=== PATIENT | male | born 1965 | race Caucasian/White ===

== ENCOUNTER 2021-05-04 15:09 | Emergency (ER) | payer OTHER, SELFPAY ==
--- NOTE | ~2021-05-04 | CT_ITS ---
EXAMINATION: CT ABDOMEN AND PELVIS WITH CONTRAST CLINICAL INFORMATION: Abdominal pain. Recent inguinal hernia repair (05/03/2021). COMPARISON: No similar priors. TECHNIQUE: Multidetector volumetric images were obtained from the superior aspect of the liver through the pubic symphysis following administration 85 mL of Omnipaque 350 intravenous contrast. Sagittal and coronal reformatted images were obtained on the technologist's workstation. Oral contrast: No This CT examination was performed using dose optimization techniques as appropriate, variously including the following: *Automated exposure control *Adjustment of mA and/or kV according to patient size (this includes techniques or standardized protocols for targeted exams where dose is matched to indication/reason for exam; i.e. extremities or head) *Use of iterative reconstruction technique DLP: 268 mGy-cm FINDINGS: LUNG BASES: The visualized lung bases are unremarkable. LIVER, GALLBLADDER, AND BILIARY TREE: The liver is normal in size, shape and attenuation. There is a 1.8 cm cyst in the left hepatic lobe on image 15 of series 3. There are several additional smaller hypodensities throughout the liver which are too small to characterize although statistically are also likely to represent simple cysts. There is no biliary ductal dilatation. The gallbladder is within normal limits. PANCREAS: No focal abnormalities. The main pancreatic duct is nondilated. SPLEEN: Unremarkable. ADRENAL GLANDS: There is a 1.3 cm right adrenal nodule (image 19 of series 3) and a 8 mm left adrenal nodule (image 20 of series 3) of uncertain etiology. KIDNEYS AND URETERS: The kidneys are normal in size, shape, and attenuation. There is an exophytic simple cyst off the mid pole of the left kidney. There are other too small to characterize hypodensities in the left kidney which are statistically likely to represent simple cysts. No hydronephrosis, hydroureter, or calculi seen. No perinephric stranding. BLADDER: The urinary bladder is partially underdistended with a St catheter and balloon in place. The tip of the St catheter terminates in close proximity to the left upper wall on image 77 of series 3. Air in the center of the urinary bladder is likely related with the presence of the balloon of the St catheter. There is mild wall thickening and surrounding free fluid and fat stranding which are indeterminate in the postoperative setting. GASTROINTESTINAL TRACT: There is mild prominence of the stomach and several loops of small bowel, likely related with a postoperative ileus. No evidence of bowel obstruction. There is moderate stool burden in the cecum and ascending colon. The distal colon is under distended limiting assessment of wall thickening. However, no significant pericholecystic inflammatory changes are identified. The appendix is unremarkable. ABDOMINAL WALL: There is subcutaneous air in both inguinal regions tracking superiorly along the abdominal wall up to the level of the chest wall and mediastinum. There is also pneumoperitoneum, with the majority of the air tracking along the left paracolic gutter. There is soft tissue thickening and free fluid in both inguinal regions, right greater than left. The density in some of these areas is higher than simple fluid and likely represent postoperative blood products. The largest pocket of fluid in the right inguinal region measures 3.8 x 2.6 x 5.8 cm. There are no organized fluid collections or abscess. LYMPH NODES: No lymphadenopathy by size criteria. VASCULAR: Scattered atherosclerotic disease of the abdominal aorta which is of normal caliber. PELVIC VISCERA: Enlarged prostate gland with heterogeneous appearance. No drainable intraprostatic collections or abscess. OSSEOUS STRUCTURES: No acute or aggressive osseous abnormalities. CT/CT abdomen pelvis w con IMPRESSION: There is soft tissue stranding, free fluid, blood products and air in both inguinal regions, right greater than left which is indeterminate in a recent postoperative setting. No organized collections or abscesses are identified. There is also extensive subcutaneous air extending from the inguinal regions up to the level of the chest, including the presence of pneumomediastinum and pneumoperitoneum. These findings are also indeterminate in a recent postoperative setting. The prostate gland is enlarged and heterogeneous which could be related with chronic prostatic hyperplasia. There are no definite intraprostatic collections or abscesses. The urinary bladder is partially decompressed and is slightly wall thickened which could be a combination of chronic outlet obstruction and underdistention. Suspect some degree of postoperative ileus. No bowel obstruction. Recommend a short-term follow-up examination to ensure that these findings are improving. Indeterminate adrenal lesions. In a patient without history of malignancy this is almost certainly a benign adrenal adenoma. Suggest comparison to any prior imaging if available. If none is available followup adrenal protocol CT (without and with contrast) or MRI without contrast in 6 months is recommended to exclude significant growth. If there are clinical findings of adrenal hyperfunction would correlate with biochemical testing. This critical result was discussed with FAMILIA Marquez at 05/04/2021 8:00 PM and it was ascertained that the content and urgency of the report was understood at the time of direct communication.
[2021-05-04 15:26] VITALS: BP 150/65; PULSE 67; RESP 18; TEMP 36.8; O2SAT 100; BMI 19.9
--- NOTE | 2021-05-04 16:44 | ED_ITS ---
HPI - Male Genitourinary General Chief complaint: Urogenital-Male Stated complaint: Urinary Retention Time Seen by Provider: 05/04/21 16:44 Source: patient Mode of arrival: ambulatory Limitations: no limitations History of Present Illness HPI Narrative: 55-year-old male past medical history significant for BPH, and prostate lesions presents to the emergency department with complaints of decreased urinary stream, and abdominal pain x2 days. He states yesterday he had a laparoscopic bilateral hernia repair at [facility]. This surgery had no complications. They told him that he could get discharge as long as he was able to void, however he states he barely was able to void yesterday and despite that he was DC. Today he states that he has been having frequent urination, and he has been dribbling, and not having a normal stream. He also reports diffuse 10/10 abdominal pain since yesterday, and abdominal distention. He denies weakness, paresthesias, numbness, shortness of breath, chest pain, c hanges in bowel habits, altered mentation, fevers, chills. MD Complaint: other (Abdominal pain) Duration: constant Severity scale (1-10): 10 Relieving factors: none Exacerbating factors: none Context: recent surgery (Bilateral hernia repair.) Associated symptoms: Reports denies other symptoms Related Data Previous Rx's Medication Instructions Recorded oxycodone-acetaminophen 5 mg-325 1 tab PO Q6H PRN #10 tab 05/04/21 mg tablet (Percocet) tamsulosin 0.4 mg capsule (Flomax) 0.4 mg PO DAILY 5 Days #5 cap 05/04/21 Allergies Allergy/AdvReac Type Severity Reaction Status Date / Time No Known Allergies Allergy Verified 05/04/21 15:25 Review of Systems Review of Systems: Constitutional : No Weight loss, No Fever, No Chills, No Night Sweats, No Fatigue, NoMalaise ENT/Mouth: No ear pain, No sore throat, No Difficulty swallowing Cardiovascular : No Chest Pain, No SOB, No Dyspnea on Exertion, No Orthopnea, NoEdema, No Palpitations Respiratory : No Cough, No Sputum, No Wheezing, No Dyspnea Gastrointestinal : No Nausea, No Vomiting, + abdominal pain, No Diarrhea, Genitourinary : No irregular bleeding, No Dysuria, + Urinary Frequency, No Hematuria,No Urinary Incontinence, + Urgency, No Flank Pain, + decreased urinary stream Musculoskeletal : No joint pain, No Myalgias, No Joint Swelling Skin : No Skin Lesions, No rash Neuro : No Weakness, No Numbness, No Paresthesias, No Loss of Consciousness, NoDizziness, No Headache Yes all other systems are reviewed and are negative [facility] Past Medical History Attestation statement: The following information was validated with the patient. Medical History Enlarged prostate Surgical History H/O knee surgery S/P hernia repair Social History Social History Smoked in Last 30 Days: No Use of substances other than those prescribed or required for medical reasons: No Advance Directives: No Advance Directives Information Provided: Yes Physical Exam Vital Signs: Vital Signs: Last Vital Signs Temp 97.8 F 05/04/21 20:26 Pulse 59 05/04/21 20:26 Resp 16 05/04/21 20:26 BP 123/84 05/04/21 20:26 Pulse Ox 99 05/04/21 20:26 Body Mass Index 19.9 vital signs have been reviewed as normal and appeared to be correct. Blood pressure normal. Heart rate normal. Respiration rate normal. Temperature normal. Oxygen saturation normal. Appearance: Alert. Oriented X3. No acute distress. Head: Normal external exam. Normocephalic. Atraumatic. Eyes: PERRLA. EOMI. Conjunctiva and sclera normal. Eyelids normal. ENT: EAC normal. TM's Normal. Pharynx normal. Uvula midline. Moist mucous membranes. No trismus noted. No drooling noted. No muffled voice noted. Neck: Normal inspection. Neck supple. FROM. No adenopathy. Thyroid Normal. No meningeal signs. No neck mass noted. CVS: Normal heart rate and rhythm. Heart sound normal. Pulses normal throughout. No murmurs/rales/gallops. Respiratory: No respiratory distress. Painless inspiration. Breath sounds normal. No wheezes/rales/rhonchi noted. Chest nontender. No accessory muscle usage noted or decreased air movement noted. Abdomen: Soft and + diffusely tender in all 4 quadrants. Bowel sounds normal in all 4 quadrants. + distention noted. No organomegaly noted. Back: + CVA tenderness on right. Full range of motion noted. No kathe hes/lesion/induration/fluctuance or signs of infection noted. Skin: Skin warm and dry. Normal skin color. Normal skin turgor. + Three small 4 cm incision sites noted to the abdomen from laproscopic procedure, closed with surgical glue, clean dry and intact. With no overlying erythema or calor Extremities: No lower extremity edema. Extremities exhibit normal range of motion. Extremities nontender. Neuro: Oriented X 3. No motor deficit. No sensory deficit. Reflexes normal. Normal steady gait. No focal neuro deficits noted. Vascular: + radial pulses/+ 2 distal pedal pulses/+2 dorsalis pedis b/l. Normal cap refill. No cyanosis noted to upper extremity nails and lower extremity toes nails. Course Course Course Narrative: 1644 55-year-old male pmhx BPH, and prostate lesions presents to the ED with complaints of decreased urinary stream, and abdominal pain x2 days status post laparoscopic bilateral hernia repair yesterday at [facility]. He reports no known complications during the surgery. Upon physical examination there is diffuse abdominal pain noted in all 4 qu adrants. There is also abdominal distension noted, with normoactive bowel sounds. There are 3 4 cm incision sites noted on the abdomen that are clean dry and intact, free of erythema and calor. No signs of infection. There is also positive CVA tenderness on the right. He is neurologically intact, no sensory or motor deficits. 5/5 strength upper and lower extremities. Thready exam patient appears uncomfortable, and catching for red, to avoid pain. Basic labs to be ordered as well as a liver panel, magnesium, St catheter, CT of the abdomen. He will also be given 4 mg of morphine for the pain. Reevaluation(s) Reevaluation #1: Lab show no acute infection, there are no electrolyte abnormalities noted, urine is clean. Upon re-evaluation patient is feeling much better after administration of morphine. A St catheter has been placed and there has been an output of about 600 cc of clear yellow urine. Patient feels relief, abdomen does not appear to be as distended as initially. CVA tenderness to the right hand side has also resolved. CT of the abdomen pending. Time: 18:07 Reevaluation #2: Spoke with radiology about abdomen/pelvis CT who is concerned with air in subcutaneous area tracking into the abdominal wall. However acco rding to patient history he had a laparoscopic bilateral hernia repair where care was more than likely air was insufflated into his abdomen, so this is what is being seen on imaging. There is no pain to palpation at this time, pain resolved with pain medication, there is no crepitus that is appreciated on exam. Also CT mentions concerns for postop ileus, patient is having normal bowel movements, and they have been prescribed stool softeners which she will begin to take at this time. He will be discharged home with an indwelling St catheter, he should follow-up with urology. He should also follow-up with his surgeon and/or his primary care provider to follow-up on his hernia repair, and healing process. He has been advised to return to the emergency department with new or worsening symptoms. He will be given a leg bag for comfort. Time: 20:00 Reevaluation #3: Prior to him being discharged I printed out the results of the CT report. I also informed him about the lesions that were seen on his adrenal gland. He states that he knew about these, and he has previously gotten an MRI where these were visualized. Safe for discharge home with follow-up. Time: 20:15 [facility] - Male Genitourinary Medical Records Attestation: I reviewed the patient's medical records. Lab Data Attestation: I reviewed the patient's lab results. Result diagrams: 05/04/21 17:18 05/04/21 17:18 Labs: Lab Results 05/04/21 05/04/21 05/04/21 Range/Units 17:18 17:18 17:18 WBC 13.4 H (4.8-10.8) X10*3/uL RBC 4.24 L (4.60-5.80) X10*6/uL Hgb 13.4 L (14.0-18.0) g/dl Hct 38.9 L (42-52) % MCV 91.7 (80-98) fL MCH 31.6 (27.0-33.0) pg MCHC 34.4 (31.0-36.0) g/dl RDW 12.3 (11.0-16.0) % Plt Count 316 (160-400) X10*3/uL MPV 9.2 L (9.4-12.4) fL Immature Gran % (Auto) 0.4 (0.0-0.4) % Neut % (Auto) 74.0 H (45-73) % Lymph % (Auto) 16.5 L (20-40) % [place] % (Auto) 8.1 (2-11) % Eos % (Auto) 0.7 (0-4) % Baso % (Auto) 0.3 (0-2) % Lymph # (Auto) 2.2 (1.2-4.9) X10*3/uL [place] # (Auto) 1.1 (0.1-1.2) X10*3/uL Eos # (Auto) 0.1 (0.0-0.4) X10*3/uL Baso # (Auto) 0.0 (0.0-0.2) X10*3/uL Abs Immat Gran (auto) 0.05 H (0.00-0.03) X10*3/uL Absolute Neuts (auto) 9.9 H (2.0-8.3) X10*3/uL Absolute Nucleated RBC 0.000 (0.0-0.012) X10*3/uL Nucleated RBC % (auto) 0.0 (0.0-0.2) /100WBC Sodium 135 (135-145) mmol/L Potassium 4.2 (3.3-5.1) mmol/L Chloride 99 (96-108) mmol/L Carbon Dioxide 26 (22-29) mmol/L Anion Gap 14 (12-20) BUN 11 (9-16) mg/dL Creatinine 1.05 (0.5-1.4) mg/dL Estim Creat Clear Calc 79.0 Estimated GFR > 60 Random Glucose 108 (60-115) mg/dL Calcium 9.9 (8.4-10.2) mg/dL Magnesium 2.1 (1.6-2.6) mg/dL Total Bilirubin 1.2 H (0.0-1.0) mg/dL Direct Bilirubin 0.3 (0.0-0.5) mg/dL AST 19 (5-37) U/L ALT 12 (0-40) U/L Alkaline Phosphatase 70 (39-117) U/L Total Protein 7.2 (6.5-8.0) g/dL Albumin 4.7 (3.5-5.0) g/dL Urine Color YELLOW Urine Appearance CLEAR Urine pH 7.0 (5.0-8.0) Ur Specific [place] 1.010 (1.005-1.025) Urine Protein NEG (NEG-TRACE) MG/DL Urine Glucose (UA) NEG (NEG) MG/DL Urine Ketones NEG (NEG) MG/DL Urine Blood NEG (NEG) Urine Nitrite NEG (NEG) Ur Leukocyte Esterase NEG (NEG) Imaging Data CT scan - abdomen: Attestation: I personally reviewed and interpreted this imaging study as follows: Radiologist's impression: FINDINGS: LUNG BASES: The visualized lung bases are unremarkable.? LIVER, GALLBLADDER, AND BILIARY TREE: The liver is normal in size, shape and attenuation. There is a 1.8 cm cyst in the left hepatic lobe on image 15 of series 3. There are several additional smaller hypodensities throughout the liver which are too small to characterize although statistically are also likely to represent simple cysts. There is no biliary ductal dilatation. The gallbladder is within normal limits. PANCREAS: No focal abnormalities. The main pancreatic duct is nondilated.? SPLEEN: Unremarkable.? ADRENAL GLANDS: There is a 1.3 cm right adrenal nodule (image 19 of series 3) and a 8 mm left adrenal nodule (image 20 of series 3) of uncertain etiology.? KIDNEYS AND URETERS: The kidneys are normal in size, shape, and attenuation. There is an exophytic simple cyst off the mid pole of the left kidney. There are other too small to characterize hypodensities in the left kidney which are statistically likely to represent simple cysts. No hydronephrosis, hydroureter, or calculi seen. No perinephric stranding. ? BLADDER: The urinary bladder is partially underdistended with a St catheter and balloon in place. The tip of the St catheter terminates in close proximity to the left upper wall on image 77 of series 3. Air in the center of the urinary bladder is likely related with the presence of the balloon of the St catheter. There is mild wall thickening and surrounding free fluid and fat stranding which are indeterminate in the postoperative setting.? GASTROINTESTINAL TRACT: There is mild prominence of the stomach and several loops of small bowel, likely related with a postoperative ileus. No evidence of bowel obstruction. There is moderate stool burden in the cecum and ascending colon. The distal colon is under distended limiting assessment of wall thickening. However, no significant pericholecystic inflammatory changes are identified. The appendix is unremarkable.? ABDOMINAL WALL: There is subcutaneous air in both inguinal regions tracking superiorly along the abdominal wall up to the level of the chest wall and mediastinum. There is also pneumoperitoneum, with the majority of the air tracking along the left paracolic gutter. There is soft tissue thickening and free fluid in both inguinal regions, right greater than left. The density in some of these areas is higher than simple fluid and likely represent postoperative blood products. The largest pocket of fluid in the right inguinal region measures 3.8 x 2.6 x 5.8 cm. There are no organized fluid collections or abscess.? LYMPH NODES: No lymphadenopathy by size criteria. VASCULAR: Scattered atherosclerotic disease of the abdominal aorta which is of normal caliber. PELVIC VISCERA: Enlarged prostate gland with heterogeneous appearance. No drainable intraprostatic collections or abscess.? OSSEOUS STRUCTURES: No acute or aggressive osseous abnormalities.? CT/CT abdomen pelvis w con IMPRESSION: There is soft tissue stranding, free fluid, blood products and air in both inguinal regions, right greater than left which is indeterminate in a recent postoperative setting. No organized collections or abscesses are identified. ? There is also extensive subcutaneous air extending from the inguinal regions up to the level of the chest, including the presence of pneumomediastinum and pneumoperitoneum. These findings are also indeterminate in a recent postoperative setting. ? The prostate gland is enlarged and heterogeneous which could be related with chronic prostatic hyperplasia. There are no definite intraprostatic collections or abscesses. The urinary bladder is partially decompressed and is slightly wall thickened which could be a combination of chronic outlet obstruction and underdistention. ? Suspect some degree of postoperative ileus. No bowel obstruction. ? Recommend a short-term follow-up examination to ensure that these findings are improving. ? Indeterminate adrenal lesions. In a patient without history of malignancy this is almost certainly a benign adrenal adenoma. Suggest comparison to any prior imaging if available. If none is available followup adrenal protocol CT (without and with contrast) or MRI without contrast in 6 months is recommended to exclude significant growth. If there are clinical findings of adrenal hyperfunction would correlate with biochemical testing. ? This critical result was discussed with FAMILIA Marquez at 05/04/2021 8:00 PM and it was ascertained that the content and urgency of the report was understood at the time of direct communication. ? ? Critical Care Time Critical Care Time Critical Care Time: Yes Total Critical Care Time: 60 Attestation: I personally attest to this time spent taking care of the patient Discharge Plan Discharge Clinical Impression: Acute urinary retention, Abdominal pain, St catheter in place, Enlarged prostate Patient Disposition: Home, Self-Care Instructions: Urinary Retention in Men (ED), Enlarged Prostate (BPH) (ED), St Catheter Placement and Care (ED), Abdominal Pain (ED) Additional Instructions: Follow-up with her PCP and/or surgeon. Take Percocet as needed for pain Follow-up with Dr. Kohler who is the urologist, for urinary retention Return to the emergency department with new or worsening symptoms Prescriptions: New tamsulosin [Flomax] 0.4 mg capsule 0.4 mg PO DAILY 5 Days Qty: 5 RF: 0 oxycodone-acetaminophen [Percocet] 5-325 mg tablet 1 tab PO Q6H PRN (Reason: pain) Qty: 10 RF: 0 Referrals: Prosper Kohler MD [Physician] - 3 days (Call to schedule appointment on Friday.) Interventions: ED Discharge Assessment Last Done: 05/04/21 20:56 Discharge Date/Time: 05/04/21 20:57
[2021-05-04 17:10] VITALS: BP 187/112; PULSE 75; RESP 16; TEMP 36.8; O2SAT 100
[2021-05-04] MEDS: Morphine Sulfate 4 MG/ML CARTRIDGE IVPUSH (17:24)
[2021-05-04 17:26] LABS: MANUAL DIFF FLAG NO
[2021-05-04 17:29] LABS: Basophils Percent Auto 0.3 % (0-2); Eosinophils Absolute Auto 0.1 X10*3/uL (0.0-0.4); Eosinophils Percent Auto 0.7 % (0-4); Hematocrit 38.9 % (42-52); Hemoglobin 13.4 g/dl (14.0-18.0); Imm Gran Abs Auto 0.05 X10*3/uL (0.00-0.03); Imm Gran Pct Auto 0.4 % (0.0-0.4); Lymphocytes Absolute Auto 2.2 X10*3/uL (1.2-4.9); Lymphocytes Percent Auto 16.5 % (20-40); Mean Corpuscular HGB Conc 34.4 g/dl (31.0-36.0); Mean Corpuscular Hemoglobin 31.6 pg (27.0-33.0); Mean Corpuscular Volume 91.7 fL (80-98); Mean Platelet Volume 9.2 fL (9.4-12.4); Monocytes Absolute Auto 1.1 X10*3/uL (0.1-1.2); Monocytes Percent Auto 8.1 % (2-11); Neutrophils Absolute Auto 9.9 X10*3/uL (2.0-8.3); Platelet Count 316 X10*3/uL (160-400); Red Blood Count 4.24 X10*6/uL (4.60-5.80); Red Cell Distribution Width 12.3 % (11.0-16.0); White Blood Count 13.4 X10*3/uL (4.8-10.8)
[2021-05-04 17:35] LABS: Appearance Urine CLEAR; Color Urine YELLOW; Glucose Urine UA NEG (NEG); Leukocyte Esterase Urine NEG (NEG); Nitrite Urine NEG (NEG); Urine Blood NEG (NEG); Urine Ketones NEG (NEG); Urine Protein NEG (NEG-TRACE)
[2021-05-04 17:45] LABS: Alanine Aminotransferase 12 U/L (0-40); Albumin Level 4.7 g/dL (3.5-5.0); Alkaline Phosphatase 70 U/L (39-117); Anion Gap 14 (12-20); Aspartate Amino Transferase 19 U/L (5-37); Bilirubin Direct 0.3 mg/dL (0.0-0.5); Bilirubin Total 1.2 mg/dL (0.0-1.0); Blood Urea Nitrogen 11 mg/dL (9-16); Calcium 9.9 mg/dL (8.4-10.2); Carbon Dioxide 26 mmol/L (22-29); Chloride 99 mmol/L (96-108); Estimated Glomerular Filt Rate > 60; Glucose Random 108 mg/dL (60-115); Magnesium 2.1 mg/dL (1.6-2.6); Potassium 4.2 mmol/L (3.3-5.1); Sodium 135 mmol/L (135-145); Total Protein 7.2 g/dL (6.5-8.0)
[2021-05-04] MEDS: iohexoL 350 MG/ML 100 ML INFUS..BTL 85 ML IV (18:09)
[2021-05-04 18:29] VITALS: BP 140/87; PULSE 65; RESP 16; O2SAT 100
--- NOTE | 2021-05-04 18:32 | PC.NURSE ---
2000ml emptied from patients fernandez cath. patient pain is improved.
[2021-05-04 20:26] VITALS: BP 123/84; PULSE 59; RESP 16; TEMP 36.6; O2SAT 99
== END 2021-05-04 20:57 | disposition home or self-care (01) ==
PROVIDERS: Physician Assistant Medical; Emergency Provider Emergency Medicine Emergency Medical Services; PCP Internal Medicine
DX: R33.9 Retention of urine, unspecified (principal); N40.0 Benign prostatic hyperplasia without lower urinary tract symptoms; R10.9 Unspecified abdominal pain; Z79.899 Other long term (current) drug therapy
CPT/HCPCS: 36415; 74177; 80053; 81003; 82248; 83735; 85025; 96374; 99285; 99291; J2270; Q9967

== ENCOUNTER → 2021-05-16 09:37 | Outpatient (BNVA) | payer OTHER, SELFPAY | PROVIDERS: PCP Internal Medicine; Visit Provider Urology | DX: N40.0 Benign prostatic hyperplasia without lower urinary tract symptoms (principal); Z13.9 Encounter for screening, unspecified | CPT/HCPCS: 51700; 51798 ==

== ENCOUNTER → 2021-06-27 11:15 | Outpatient (BNVA) | payer OTHER, SELFPAY | PROVIDERS: PCP Internal Medicine; Visit Provider Urology ==

== ENCOUNTER → 2021-09-05 13:10 | Outpatient (BNVA) | payer OTHER, SELFPAY | PROVIDERS: PCP Internal Medicine; Visit Provider Urology ==

== ENCOUNTER → 2022-03-19 09:01 | Outpatient (BNVA) | payer OTHER, SELFPAY | PROVIDERS: PCP Internal Medicine; Visit Provider Urology | DX: N40.1 Benign prostatic hyperplasia with lower urinary tract symptoms (principal); N13.8 Other obstructive and reflux uropathy; R97.20 Elevated prostate specific antigen [PSA] | CPT/HCPCS: 51798 ==

== ENCOUNTER → 2022-07-18 09:14 | Outpatient (BNVA) | payer OTHER, SELFPAY | PROVIDERS: PCP Internal Medicine; Visit Provider Urology | DX: R97.20 Elevated prostate specific antigen [PSA] (principal) ==

== ENCOUNTER 2023-01-30 15:23 | Outpatient (AMB) | payer OTHER, SELFPAY ==
--- NOTE | 2023-01-30 13:35 | A.OFFVIS_ITS ---
Intake Intake Visit Reasons: 6M PSA(set) Intake Note: * Patient presents today for a 6mo follow-up with PSA Results. * Meds- Tadalafil * Allergies to Antibiotic- None * Blood Thinner- None * PSA- 13.30 ng/mL Anchorer Required: No Accompanied by: Self / Same As Patient Allergies No Known Allergies Allergy (Verified 01/30/23 15:20) Medication List - Last Reconciled 01/30/23 by Hina Rabago MD amoxicillin 500 mg PO BID hydrocodone-acetaminophen 7.5-300 mg 1 tab PO BEDTIME PRN hydrocodone-acetaminophen 7.5-325 mg 3 tabs PO TID tadalafil 5 mg PO DAILY PRN 90 days HPI HPI Comments History of Present Illness Details Danie is a 57-year-old male who is here for tele-health 6-months follow-up and discussion of PSA blood work. 01/30/23-- The patient is being followed by Dr Kohler for elevated PSA and prostatitis. He has been on finasteride in the past and discontinued due to side effects. He is currently on Cialis 5 mg QD. The patient is taking antibiotics for dental infection currently. Denies dysuria in the interim. PSA blood work--01/22/23--13.30. Plan: PSA blood work 3 weeks prior was ordered. Cialis 5 mg QD was refilled. Office follow-up after [address] Kohler. REPLACED BY [facility] Medical History Enlarged prostate Surgical History H/O knee surgery S/P hernia repair Family History (Updated 01/30/23 @ 15:24 by ASAD Cunningham) Father No problems noted. Mother No problems noted. Social History (Updated 01/30/23 @ 15:23 by ASAD Cunningham) Alcohol intake: never Patient Tobacco Use Status: Never used Tobacco Review of Systems Const All systems reviewed & are unremarkable except as noted in HPI and below Reports no additional complaints Eyes Reports no additional complaints ENT Reports no additional complaints Card Denies dyspnea Resp Denies cough and Denies dyspnea GI Reports no additional complaints Musc Reports no additional complaints Skin/Breast Denies rash and Denies unusual bruising Neuro Reports no additional complaints Psych Reports no additional complaints Endo Reports no additional complaints Stevie/Lymph Reports no additional complaints Aller/Immun Reports no additional complaints Assessment & Plan Assessment & Plan (1) Elevated PSA: Code(s): R97.20 - Elevated prostate specific antigen [PSA] (2) Prostatitis: Code(s): N41.9 - Inflammatory disease of prostate, unspecified Plan PSA blood work 3 weeks prior was ordered. Cialis 5 mg QD was refilled. Office follow-up after [address] Kohler. Medications: Refilled tadalafil 5 mg PO DAILY PRN 90 tabs 2RF sexual activity 90 days N41.9 - Inflammatory disease of prostate, unspecified Patient Instructions: The patient had an opportunity to ask questions regarding treatment plan. All questions were answered. Laboratory studies and physical exam results were discussed and reviewed in detail. No major barriers to understanding were identified. The patient expressed understanding and agreement with the above treatment plan. The patient is aware they should contact our office by phone for worsening of their current condition or the appearance of new symptoms. Compliance is encouraged with any medications and followup testing that is ordered. It is a privilege to be allowed the opportunity to participate in the urologic care of your patient. If you have any questions or concerns regarding treatment for the above conditions please do not hesitate to contact me. The office telephone contact is [phone]. This note is constructed in part using voice recognition software. While every effort has been made to ensure accuracy tape control skin or spar mill operator errors may have been inc luded. Yours sincerely, Hina Rabago MD Coding Level of Care Code Est Pt Level 3 (43200) Diagnoses Elevated PSA R97.20 Prostatitis N41.9
== END 2023-01-30 16:01 | disposition home or self-care (01) ==
LOC: HO.HUSH 15:23
PROVIDERS: PCP Internal Medicine; Visit Provider Urology
DX: R97.20 Elevated prostate specific antigen [PSA] (principal); N41.9 Inflammatory disease of prostate, unspecified
CPT/HCPCS: 99213

== ENCOUNTER → 2023-01-30 15:23 | Outpatient (BNVA) | payer OTHER, SELFPAY | PROVIDERS: PCP Internal Medicine; Visit Provider Urology ==

== ENCOUNTER 2024-03-10 15:45 | Outpatient (AMB) | payer OTHER, SELFPAY ==
--- NOTE | 2024-03-10 16:02 | A.OFFVIS_ITS ---
Intake Visit Reasons: 6M Follow Up-MRI(Set) Intake Note: Patient is present for MRI follow up Research Dietitian Required: No Allergies No Known Allergies Allergy (Verified 01/30/23 15:20) HPI Comments Details: Danie is a pleasant male. He is a patient of Dr. Lackey. He seen for the following urologic conditions - prostatitis - BPH with obstruction - elevated PSA with prior negative biopsy Recent repeat MRI 03/13 115 g prostate, small area PI-RADS 2. No definitive areas Continue to follow PSA q.6 monthly Doing well on tadalafil 5 mg - refill provided Persistent elevated PSA 03/11 14, 07/11 10, 01/10 13.3, 09/13 12.6 Had been as high as [address] catheter after retention Prior MRI in 2018 and 2019. 2020 read as PI-RADS 2, 12 mm ill-defined lesion [place] [facility] [facility]. Had recommended fusion biopsy however no definitive lesions seen on MRI Exosome 04/11 25 (cut point 20) Family history of Addison syndrome - Father and sister Prostatitis Had urinary retention following bilateral laparoscopic hernia repair in April 2021 Prior history of prostatitis Reverse ejactulation with flomax Prior medications include Cialis 5 mg - had mild GI reflux Prior finasteride - libido impact [facility] Medical History Enlarged prostate Surgical History H/O knee surgery S/P hernia repair Family History Father No problems noted. Mother No problems noted. Social History Alcohol intake: never Patient Tobacco Use Status: Never used Tobacco Review of Systems Const Denies chills and Denies fever(s) Card Reports no additional complaints and Denies syncope Resp Denies cough GI Denies abdominal pain and Denies heartburn Reports as per HPI and Denies change in libido Neuro Denies syncope Psych Denies change in libido Endo Denies change in libido Physical Exam Const General: cooperative, healthy appearing, comfortable and no acute distress Orientation/consciousness: patient oriented x3 HEENT Face and sinus: Yes normal facial exam Mouth: moist mucous membranes Neck Neck: Yes normal visual inspection, Yes full ROM and Yes trachea midline Chest Chest palpation & inspection: normal inspection of the chest Resp Effort & Inspection: normal respiratory effort, able to speak in complete sentences and no respiratory distress GI Inspection: Yes normal to inspection Back/Spine/Pelvis Cervical Spine: normal cervical lordosis Thoracic/Lumbar Spine: thoracic and lumbar spine normal to inspection Skin General skin exam: no rashes or lesions noted Neuro General: patient oriented x3, gait normal, tone normal and moves all extremities Extrem General: Yes normal to inspection and Yes capillary refill normal Assessment & Plan Assessment & Plan (1) Elevated PSA: Code(s): R97.20 - Elevated prostate specific antigen [PSA] Category: Medical (2) Erectile dysfunction: Code(s): N52.9 - Male erectile dysfunction, unspecified Category: Medical Plan Six-month follow-up PSA Orders: Orders PSA,Total (Free>4and<10) 6 Months R97.20 - Elevated prostate specific antigen [PSA] Patient Instructions: Imaging studies, laboratory and physical exam results were discussed and reviewed in detail. No major barriers to patient understanding were identified. An opportunity to ask questions regarding the treatment plan was provided. All questions were answered. The patient expressed understanding and agreement with the above treatment plan. The patient is aware they should contact our office by phone for worsening of their current condition or the appearance of new urologic symptoms. Compliance is encouraged with any medications and followup testing that is ordered. It is a privilege to participate in the urologic care of your patient. If you have any questions or concerns regarding treatment for the above conditions, or other urologic issues, please do not hesitate to contact me. The office telephone contact is [phone]. This note is constructed using voice recognition software. While every effort has been made to ensure accuracy cigarette carton sealer errors may have been included. Yours sincerely, Dr Prosper Kohler MD, [facility] - Urology Providers of Expert, Compassionate Care for the Genitourinary System Coding Level of Care Code Est Pt Level 3 (50013) Diagnoses Elevated PSA R97.20 Erectile dysfunction N52.9
== END 2024-03-10 16:28 | disposition home or self-care (01) ==
PROVIDERS: PCP Internal Medicine; Visit Provider Urology
DX: R97.20 Elevated prostate specific antigen [PSA] (principal); N52.9 Male erectile dysfunction, unspecified
CPT/HCPCS: 99213

== ENCOUNTER → 2024-03-10 15:45 | Outpatient (BNVA) | payer OTHER, SELFPAY | PROVIDERS: PCP Internal Medicine; Visit Provider Urology ==

== ENCOUNTER 2024-12-15 13:29 | Outpatient (AMB) | payer OTHER, SELFPAY ==
--- NOTE | 2024-12-15 13:29 | MHC.OFFVIS ---
Intake Visit Reasons: 6M/ PSA Intake Note: Patient is present for 6M/PSA Urology Medication:TADALAFIL Antibiotic Allergy:NONE Blood Thinner:NONE Records Management Engineer Required: No Allergies No Known Allergies Allergy (Verified 12/15/24 13:30) HPI Comments Details: Danie is a pleasant male. He is a patient of Dr. Lackey. He seen for the following urologic conditions - prostatitis - BPH with obstruction - elevated PSA with prior negative biopsy Telemedicine Evaluation 15 min Consultation [employer] Recent PSA. PSA density for 120gm prostate should be below 18 Discussed PSA and PSA variability Often dutasteride however he was sensitive to finasteride with libido impact Continue surveillance 03/13 115 g prostate, small area PI-RADS 2. No definitive areas Doing well on tadalafil 5 mg - refill provided Persistent elevated PSA 03/11 15, 07/11 10, 01/10 13.3, 09/13 12.6, 12/12 16.1 16% Had been as high as [address] catheter after retention Prior MRI in 2018 and 2019. 2020 read as PI-RADS 2, 12 mm ill-defined lesion Prior evaluation with other urologists at [facility] and [facility]. Had recommended fusion biopsy however no definitive lesions seen on MRI Exosome 04/11 25 (cut point 20) Family history of Addison syndrome - Father and sister Prostatitis Had urinary retention following bilateral laparoscopic hernia repair in April 2021 Prior history of prostatitis Reverse ejaculation with flomax Prior medications include Cialis 5 mg - had mild GI reflux Prior finasteride - libido impact [facility] Medical History Enlarged prostate Surgical History H/O knee surgery S/P hernia repair Family History Father No problems noted. Mother No problems noted. Social History Alcohol intake: never Patient Tobacco Use Status: Never used Tobacco Review of Systems Const All systems reviewed & are unremarkable except as noted in HPI and below Reports no additional complaints Resp Reports no additional complaints GI Reports no additional complaints Reports as per HPI Musc Reports no additional complaints Physical Exam Telemedicine evaluation Appropriate responses Regular breathing rate and rhythm HEENT Head: Yes normal to inspection Ears: hearing grossly normal bilaterally Eyes General: appearance normal, both eyes and all related structures Neck Neck: Yes normal visual inspection Chest Chest palpation & inspection: normal inspection of the chest Resp Effort & Inspection: normal respiratory effort and able to speak in complete sentences Telehealth Telehealth Location of provider rendering services: practice address Location of patient: address on file Patient Identification confirmed using: Name, : Yes Telehealth method: voice only Patient verbally consented to treatment: Yes Patient verbally consented to billing insurance company: Yes Patient informed of any privacy concerns related to visit: Yes Assessment & Plan Assessment & Plan (1) BPH w urinary obs/LUTS: Code(s): N40.1 - Benign prostatic hyperplasia with lower urinary tract symptoms; N13.8 - Other obstructive and reflux uropathy Category: Medical (2) Prostatitis: Code(s): N41.9 - Inflammatory disease of prostate, unspecified Category: Medical (3) Erectile dysfunction: Code(s): N52.9 - Male erectile dysfunction, unspecified Category: Medical (4) Elevated PSA: Code(s): R97.20 - Elevated prostate specific antigen [PSA] Category: Medical Plan Six-month follow-up PSA office Orders: Orders PSA,Total (Free>4and<10) 6 Months N13.8 - Other obstructive and reflux uropathy, N40.1 - Benign prostatic hyperplasia with lower urinary tract symptoms Medications: Refilled tadalafil daily medication 5 mg PO DAILY 90 days PRN 90 tabs 1RF sexual activity R97.20 - Elevated prostate specific antigen [PSA] Discontinued tadalafil Discontinued Reason: Doctor's Order 5 mg PO DAILY 10 tabs 0RF Patient Instructions: This note is constructed using voice recognition software. While every effort has been made to ensure accuracy lurer errors may have been included. Imaging studies, laboratory and physical exam results were discussed and reviewed in detail. No major barriers to patient understanding were identified. An opportunity to ask questions regarding the treatment plan was provided. All questions were answered. The patient expressed understanding and agreement with the above treatment plan. The patient is aware they should contact our office by phone for worsening of their current condition or the appearance of new urologic symptoms. Compliance is encouraged with any medications and followup testing that is ordered. It is a privilege to participate in the urologic care of your patient. If you have any questions or concerns regarding treatment for the above conditions, or other urologic issues, please do not hesitate to contact me. The office telephone contact is [phone]. Sincerely, Dr Prosper Kohler MD, [facility] - Urology Compassionate Specialist Care for the Genitourinary System Coding Level of Care Code Tele Est Pt Level 3 (10425) Complex EM visit Add On G2211 Diagnoses BPH w urinary obs/LUTS N40.1; N13.8 Prostatitis N41.9 Erectile dysfunction N52.9 Elevated PSA R97.20
--- OUTSIDE RECORDS SUMMARY | 2024-12-15 14:22 | XMS_ITS | Data Portability ---
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 higher left knee likely synovial cyst [email or web address] Not available 03/04/2022 14:39:45 Plan of Treatment Reminders Order Date Submit Date Provider Last Modified By Organization Details Last Modified Time Details Appointments None recorded. Lab None recorded. Referral urologist referral - You will be his 4th urologist. psa 28.91 sudden rise, had been normal 2020 021 PARKER Bañuelos MD, [address] [place], [address], 1 12:44:36 Procedures None recorded. Surgeries None recorded. Imaging LDCT, chest, for lung cancer screening - Please enroll this patient in the LDCT Lung Cancer Screening Program (for ordering, follow up and shared decision making) 2022 023 [email or web address] 3 [facility], [address] [place], [address], 3 15:56:05 Medication Orders erythromyci n 5 mg/gram (0.5 %) eye ointment 2022 023 [facility], [address] [place], [address], 14:22:29 neomycin-po lymyxin-hyd rocort 3.5 mg-10,000 unit/mL-1 % ear drops,susp 2022 023 [facility], [address] [place], [address], 14:22:48 levofloxaci n 500 mg tablet 2020 021 [email or web address] 3 [id number], [address] [place], [address], 14:08:46 Patient TargetsNo targets recorded. Patient Instructions Encounter Date Encounter Id Patient Instructions Last Modified By Organization Details Last Modified Time 03/04/2022 [id number] Well Visit 50 to 65: Care Instructions [email or web address] Not available 03/04/2022 14:50:12 Prostate Cancer Screening using PSA was discussed. The U.S. Preventive Services Task Force advises not to make a PSA test a part of the standard exam for men ages 55-69. Instead they recommend the uncertainties about the test be discussed and ordered only if a patient still wants it. Over their lifetimes as many as 50% or more of men will develop prostate cancer but only 2% of men will of prostate cancer. For men who chose to be screened for prostate cancer if 1000 men are screened with a psa test over a 15 year period there might be 1-2 deaths prevented however 235 men will have a biopsy with risk of infection, bleeding and Pain, 100 men will have their prostate removed by surgery or radiation treatments and 60-70 of those will suffer incontinence or impotence. There is also the risk of anesthesia or radiation complications. For men over 70 prostate cancer screening offered no benefit and risked pain, worry, expense and possibly shorter life expectancy. Not available 03/04/2022 14:06:01 03/10/2023 [id number] Well Visit 50 to 65: Care Instructions [email or web address] Not available 03/10/2023 14:57:13 Reason for Referral Urologist Referral for Urina ry tract infectious disease You will be his 4th urologist. psa 28.91 sudden rise, had been normal Referring Physician: Paul Lackey, Family Medicine, Encounter Date: 06/01/2021 Results Created Date Observation Date Name Description Value Unit Range Abnormal Flag Note LastModifiedBy Organization Detail LastModifiedTime 05/31/20 21 05/31/2021 URINA LYSIS color YELLOW yellow Not Available [address], [address], 05/31/2021 17:08:51 05/31/20 21 05/31/2021 URINA LYSIS clarity CLEAR clear Not Available [address], [address], 05/31/2021 17:08:51 05/31/20 21 05/31/2021 URINA LYSIS glucose NEGATI VE negati ve Not Available [address], [address], 05/31/2021 17:08:51 05/31/20 21 05/31/2021 URINA LYSIS bilirubin NEGATI VE negati ve Not Available [address], [address], 05/31/2021 17:08:51 05/31/20 21 05/31/2021 URINA LYSIS ketones NEGATI VE negati ve Not Available [address], [address], 05/31/2021 17:08:51 05/31/20 21 05/31/2021 URINA LYSIS specific gravity 1.025 1.001- 1.035 Not Available [address], [address], 05/31/2021 17:08:51 05/31/20 21 05/31/2021 URINA LYSIS pH 5.0 5.0-8. 0 Not Available [address], [address], 05/31/2021 17:08:51 05/31/20 21 05/31/2021 URINA LYSIS protein NEGATI VE negati ve Not Available [address], [address], 05/31/2021 17:08:51 05/31/20 21 05/31/2021 URINA LYSIS urobilinogen 0.2 E.U./D L <1.0 Not Available [address], [address], 05/31/2021 17:08:51 05/31/20 21 05/31/2021 URINA LYSIS nitrates NEGATI VE negati ve Not Available [address], [address], 05/31/2021 17:08:51 05/31/20 21 05/31/2021 URINA LYSIS blood NEGATI VE negati ve Not Available [address], [address], 05/31/2021 17:08:51 05/31/20 21 05/31/2021 URINA LYSIS leukocytes 1+ negati ve abnormal Not Available [address], [address], 05/31/2021 17:08:51 05/31/20 21 05/31/2021 URINE , MICRO SCOPI C WBC 5-10 hpf 0-4/hp f Not Available [address], [address], 05/31/2021 17:24:21 05/31/20 21 05/31/2021 URINE , MICRO SCOPI C RBC NONE SEEN hpf 0-2/hp f Not Available [address], [address], 05/31/2021 17:24:21 05/31/20 21 05/31/2021 URINE , MICRO SCOPI C bacteria TRACE none seen Not Available [address], [address], 05/31/2021 17:24:21 05/31/20 21 05/31/2021 URINE , MICRO SCOPI C yeast NONE SEEN none seen Not Available [address], [address], 05/31/2021 17:24:21 05/31/20 21 05/31/2021 URINE , MICRO SCOPI C mucous NONE SEEN none seen Not Available [address], [address], 05/31/2021 17:24:21 05/31/20 21 06/01/2021 PSA PSA 28.91 NG/mL 0.00-4 .00 high Not Available [address], [address], 06/01/2021 11:19:01 05/31/20 21 06/02/2021 CULTU RE, URINE , ROUTI NE culture, urine, routine CULTU RE, URINE , ROUTI NE Micro Numbe r: [id number] Test Statu s: Final Speci men Sourc e: Urine Speci men Quali ty: Adequ ate Resul t: No Growt h Not Available [facility] [place] [facility] [address], [address], 06/02/2021 04:17:13 05/31/20 21 06/02/2021 HEPAT ITIS C AB W/REF L TO HCV RNA, QN, PCR hepatitis C antibody NON-RE ACTIVE non-re active normal Not Available [facility] [place] [facility] [address], [address], 06/02/2021 17:50:51 05/31/20 21 06/02/2021 HEPAT ITIS C AB W/REF L TO HCV RNA, QN, PCR index 0.01 <1.00 normal HCV antib ila was non-r eacti ve. There is no labor atory evide nce of HCV infec tion. In most cases , no furth er actio n is requi red. Howev er, if recen t HCV expos ure is suspe cted, a test for HCV RNA (test code 08957 ) [facility]. For addit ional infor jam day refer to http: //[facility] susanne ponce gnserene ics.c om/fa q/FAQ 22v1 (This link is being provi ded for infor jam callejas/ constantin melgar purpo ses only. ) Not Available [facility] [place] [facility] [address] [place] [address] [address], [place], [address], 06/02/2021 17:50:51 02/28/20 22 02/28/2022 LIPID PANEL cholesterol 257 mg/dL <200 mg/dl Kusum able 200-2 39 mg/dl Borde rline High >240 mg/dl High Not Available [address], [address], 02/28/2022 09:17:05 02/28/20 22 02/28/2022 LIPID PANEL triglyceride s 132 mg/dL <150 mg/dL Justyna l 150-1 99 mg/dL Borde rline High 200-4 99 mg/dL High >500 mg/dL Very High Not Available [address], [address], 02/28/2022 09:17:05 02/28/20 22 02/28/2022 LIPID PANEL direct HDL 49 mg/dL <40 mg/dl - Major Risk for CHD >60 mg/dl - Negat bridgette Risk for CHD Not Available [address], [address], 02/28/2022 09:17:05 02/28/20 22 02/28/2022 GLUCO SE glucose 115 mg/dL 70-100 high Not Available [address], [address], 02/28/2022 09:17:06 02/28/20 22 02/28/2022 DIREC T LDL direct LDL 180 mg/dL RISK CATEG ORY LDL GOAL _ CHD or CHD Risk Equiv alent s <100 mg/dl (10-y ear risk >20%) 2+ Risk Facto rs <130 mg/dl (10-y ear risk <= 20%) 0-1 Risk Facto r? <160 mg/dl ? Almos t all peopl e with 0-1 risk facto r have a 10 year risk <10%, thus 10 year risk asses ment in peopl e with 0-1 risk facto r is not necdavidson madera. Not Available [address], [address], 02/28/2022 09:17:08 02/28/20 22 02/28/2022 PSA PSA 14.79 NG/mL 0.00-4 .00 high Not Available [address], [address], 02/28/2022 12:04:30 07/10/20 22 07/11/2022 PSA PSA 10.77 NG/mL 0.00-4 .00 high Not Available [address], [address], 07/11/2022 12:51:41 01/23/20 23 01/23/2023 PSA PSA 13.30 NG/mL 0.00-4 .00 high Not Available [address], [address], 01/23/2023 11:25:51 01/23/20 23 01/23/2023 LIPID PANEL cholesterol 266 mg/dL <200 mg/dl Kusum able 200-2 39 mg/dl Borde rline High >240 mg/dl High Not Available [address], [address], 01/23/2023 12:44:05 01/23/20 23 01/23/2023 LIPID PANEL triglyceride s 175 mg/dL <150 mg/dL Justyna l 150-1 99 mg/dL Borde rline High 200-4 99 mg/dL High >500 mg/dL Very High Not Available [address], [address], 01/23/2023 12:44:05 01/23/20 23 01/23/2023 LIPID PANEL direct HDL 46 mg/dL <40 mg/dl - Major Risk for CHD >60 mg/dl - Negat bridgette Risk for CHD Not Available [address], [address], 01/23/2023 12:44:05 01/23/20 23 01/23/2023 GLUCO SE glucose 109 mg/dL 70-100 high Not Available [address], [address], 01/23/2023 12:44:06 01/23/20 23 01/23/2023 DIREC T LDL direct LDL 172 mg/dL RISK CATEG ORY LDL GOAL _ CHD or CHD Risk Equiv alent s <100 mg/dl (10-y ear risk >20%) 2+ Risk Facto rs <130 mg/dl (10-y ear risk <= 20%) 0-1 Risk Facto r? <160 mg/dl ? Almos t all peopl e with 0-1 risk facto r have a 10 year risk <10%, thus 10 year risk asses ment in peopl e with 0-1 risk facto r is not neces cassy. Not Available [address], [address], 01/23/2023 12:44:07 06/19/20 23 06/20/2023 ANATO CIERRA PATHO LOGY path report [facility] [address] [place] [address] Lab Direc tor: Jennifer ring MD Surgi vicky Patho logy Repor t Acces zach #: [id number] FINAL PATHO LOGIC DIAGN OSIS: CECUM , POLYP , COLD SNARE REMOV AL: Acute colit is with crypt absce ss forma tion. [place] ctron icall y Bee d Out By Jennifer ring MD By his/h er signa ture above , the patho logis t liste d as aniceto ball the Final Diagn osis certi fies that he/sh e has perso diego revie wed this case and confi rmed or corre cted the diagn osis. CLINI VICKY HISTO RY Scree nitin colon oscop y, last colon oscop y 2012 SPECI MENS SUBMI TTED: A: CECUM , POLYP GROSS DESCR IPTIO N CECUM , POLYP : Recei venkat in forma coty are 5 piece s of garcia soft tissu e which range in size from 0.1 to 0.5 cm. Total ly submi tted in block A1. DN 06/19 Gross ing Staff : KELVIN chapman Name: SARAH CRENSHAW Jai. : [phone] (Age: 57) Sex: M 8 Insti tutio n: [facility] Locat ion: [facility] Date of Opera tion: 06/19 Date of Acces zach: 06/19 Repor carrillo: 2022 17:04 Resul ts To: Gautam herrera MD, POST- BA, BA Doty y Medic al Speci altie s Not Available [facility] (Out[facility] [address] [place], [address], 06/20/2023 19:27:35 09/04/19 24 09/05/2023 PSA (FREE AND TOTAL ) PSA, total 12.6 NG/mL < or = 4.0 high Not Available [facility] [address], [address], 09/05/2023 11:03:05 09/04/19 24 09/05/2023 PSA (FREE AND TOTAL ) PSA, free 1.8 NG/mL normal Not Available [facility] [address] [place], [place], [address], 09/05/2023 11:03:05 09/04/19 24 09/05/2023 PSA (FREE AND TOTAL ) PSA, % free NOT CALCUL ATED %_(ca lc) >25 PSA(n g/mL) Free PSA(% ) Estim ated( x) Proba bilit y of Cance r(as% ) 0-2.5 (*) Appro x. 1 2.6-4 .0(1) 0-27( 2) 24(3) 4.1-1 0(4) 0-10 56 11-15 28 16-20 20 21-25 16 >or =26 8 >10(+ ) N/A >50 Refer ences :(1)C beth na et al.:U rolog y 60: 469-4 74 (2001 ) (2)Abril harp et al.:J .Urol 168: 922-9 25 (2001 ) Free PSA(% ) Sensi tivit y(%) Speci ficit y(%) < or = 25 85 19 < or = 30 93 9 (3)Abril harp et al.:J AMA 277: 1452- 1455 (1996 ) (4)Abril harp et al.:J AMA 279: 1542- 1547 (1997 ) (x)Th melany estim ates vary with age, ethni city, famil y histo ry and NITO resul ts. (*)Th e diagn ostic usefu lness of % Free PSA has not been estab lishe d in patie nts with total PSA below 2.6 ng/mL (+)In men with PSA above 10 ng/mL , prost ate cance r risk is deter mined by total PSA alone . The Total PSA value from this assay syste m is stand ardiz ed again st the equim olar PSA stand bharat. The test resul t will be appro ximat juan antonio 20% highe r when geoff red to the WHO-s tanda rdize d Total PSA (Siem ens assay ). Geoff rison of seria l PSA resul ts shoul d be inter prete d with this fact in mind. PSA was perfo rmed using the Beckm an Coult er Immun oassa y metho d. Value s obtai stanley from diffe rent assay metho ds canno t be used inter navarro eably . PSA level s, regar dless of value , shoul d not be inter prete d as absol teller evide nce of the prese nce or absen ce of disea se. Not Available [facility] [address], [place], [address], 09/05/2023 11:03:05 11/19/19 25 11/18/2024 LIPID PANEL cholesterol 266 mg/dL <200 mg/dl Kusum able 200-2 39 mg/dl Borde rline High >240 mg/dl High Not Available [address], [address], 11/18/2024 16:21:20 11/19/19 25 11/18/2024 LIPID PANEL triglyceride s 224 mg/dL <150 mg/dL Justyna l 150-1 99 mg/dL Borde rline High 200-4 99 mg/dL High >500 mg/dL Very High Not Available [address], [address], 11/18/2024 16:21:20 11/19/19 25 11/18/2024 LIPID PANEL direct HDL 46 mg/dL <40 mg/dl - Major Risk for CHD >60 mg/dl - Negat bridgette Risk for CHD Not Available [address], [address], 11/18/2024 16:21:20 11/19/19 25 11/18/2024 GLUCO SE glucose 102 mg/dL 70-100 high Not Available [address], [address], 11/18/2024 16:21:22 11/19/19 25 11/18/2024 DIREC T LDL direct LDL 172 mg/dL RISK CATEG ORY LDL GOAL _ CHD or CHD Risk Equiv alent s <100 mg/dl (10-y ear risk >20%) 2+ Risk Facto rs <130 mg/dl (10-y ear risk <= 20%) 0-1 Risk Facto r? <160 mg/dl ? Almos t all peopl e with 0-1 risk facto r have a 10 year risk <10%, thus 10 year risk asses ment in peopl e with 0-1 risk facto r is not jean madera. Not Available [address], [address], 11/18/2024 16:21:23 11/19/19 25 11/19/2024 PSA (FREE AND TOTAL ) PSA, total 16.1 NG/mL < or = 4.0 high Not Available [facility] [address], [address], 11/19/2024 11:47:50 11/19/19 25 11/19/2024 PSA (FREE AND TOTAL ) PSA, free 2.6 NG/mL normal Not Available [facility] [address], [address], 11/19/2024 11:47:50 11/19/19 25 11/19/2024 PSA (FREE AND TOTAL ) PSA, % free NOT CALCUL ATED %_(ca lc) >25 PSA(n g/mL) Free PSA(% ) Estim ated( x) Proba bilit y of Cance r(as% ) 0-2.5 (*) Appro x. 1 2.6-4 .0(1) 0-27( 2) 24(3) 4.1-1 0(4) 0-10 56 11-15 28 16-20 20 21-25 16 >or =26 8 >10(+ ) N/A >50 Refer ences :(1)C beth grier et al.:U rolog y 60: 469-4 74 (2001 ) (2)Abril ware al.:J .Urol 168: 922-9 25 (2001 ) Free PSA(% ) Sensi tivit y(%) Speci ficit y(%) < or = 25 85 19 < or = 30 93 9 (3)Abril harp et al.:J AMA 277: 1452- 1455 (1996 ) (4)Abril harp et al.:J AMA 279: 1542- 1547 (1997 ) (x)Th melany estim ates vary with age, ethni city, famil y histo ry and NITO resul ts. (*)Th e diagn ostic usefu lness of % Free PSA has not been estab lishe d in patie nts with total PSA below 2.6 ng/mL (+)In men with PSA above 10 ng/mL , prost ate cance r risk is deter mined by total PSA alone . The Total PSA value from this assay syste m is stand ardiz ed again st the equim olar PSA stand bharat. The test resul t will be appro ximat juan antonio 20% highe r when geoff red to the WHO-s tanda rdize d Total PSA (Siem ens assay ). Geoff rison of seria l PSA resul ts shoul d be inter prete d with this fact in mind. PSA was perfo rmed using the Beckm an Coult er Immun oassa y metho d. Value s obtai stanley from diffe rent assay metho ds canno t be used inter navarro eably . PSA level s, regar dless of value , shoul d not be inter prete d as absol teller evide nce of the prese nce or absen ce of disea se. Not Available [facility] [place] [facility] [address] [place] [address] [address], [place], [address], 11/19/2024 11:47:50 Result Notes None recorded. Procedures Surgical History Date Name Laterality Status Provider Name and Address Organization Details Recorded Time 3 Budhraja - Colonoscopy completed Shola Dodson MD [address] [place] [address], [id number], [facility] 06/19/2023 09:12:51 Imaging Results None recorded. Procedure Notes None recorded. Medical Equipment None Reported. Allergies No known drug allergies Medications Name Sig Start Date Stop Date Status Note LastModified by Organization Details LastModified Time flowflex covid-19 antigen home test kit 09/03 completed Not Available Not Available Not Available Elocon 0.1 % topical cream Apply a thin film to the affected skin areas by topical route once daily 04/30 completed Uses as needed Not Available Not Available Not Available amoxicill in 500 mg capsule TAKE 1 CAPSULE BY MOUTH EVERY 8 HOURS FOR 7 DAYS active Not Available Not Available No t Available fluconazo le 100 mg tablet Take 1 tablet every day by oral route for 5 days. 06/07 completed Not Available Not Available Not Available azithromy mynor 250 mg tablet TAKE 2 TABLETS BY MOUTH TODAY, THEN TAKE 1 TABLET DAILY FOR 4 DAYS DIRECTED active Not Available Not Available No t Available fluconazo le 200 mg tablet 11/13 completed Not Available Not Available Not Available doxycycli ne monohydra te 100 mg tablet Take 2 tablets every day by oral route for 1 day. 05/17 completed Not Available Not Available Not Available oxycodone -acetamin ophen 5 mg-325 mg tablet 06/01 completed Not Available Not Available Not Available amoxicill in 875 mg tablet 05/21 completed Not Available Not Available Not Available triamcino lone acetonide 0.025 % topical cream active Not Available Not Available Not Available tamsulosi n 0.4 mg capsule 06/01 completed Not Available Not Available Not Available doxycycli ne monohydra te 100 mg capsule TAKE 1 CAPSULE BY MOUTH TWICE A DAY 12/28 completed Not Available Not Available Not Available hydrocodo ne 7.5 mg-acetam inophen 325 mg tablet TAKE 1 TO 2 TABLETS BY MOUTH EVERY 6 HOURS NEEDED FOR PAIN 03/10 completed Not Available Not Available Not Available pantopraz ole 40 mg tablet,de layed release Take 1 tablet every day by oral route. 06/01 completed Not Available Not Available Not Available erythromy mynor 5 mg/gram (0.5 %) eye ointment APPLY 1 CM RIBBON INTO THE LOWER CONJUNCT IVAL SAC(S) IN THE AFFECTED EYE(S) 3 TIMES PER DAY 03/10 completed Not Available Not Available Not Available docusate sodium 100 mg capsule 03/04 completed Not Available Not Available Not Available levofloxa mynor 500 mg tablet Take 1 tablet every 24 hours by oral route for 30 days. 03/04 completed Not Available Not Available Not Available finasteri de 5 mg tablet TAKE 1 TABLET BY MOUTH DAILY 09/03 completed Not Available Not Available Not Available neomycin- polymyxin -hydrocor t 3.5 mg-10,000 unit/mL-1 % ear drops,kimberley p INSTILL 4 DROPS INTO AFFECTED EAR(S) BY OTIC ROUTE 3 TIMES PER DAY. USE NEEDED FOR SWIMMERS EAR 03/10 completed Not Available Not Available Not Available atomoxeti ne 10 mg capsule TAKE ONE CAPSULE BY MOUTH TWICE A DAY 12/28 completed Not Available Not Available Not Available atomoxeti ne 25 mg capsule TAKE ONE CAPSULE BY MOUTH EVERY MORNING 12/28 completed Not Available Not Available Not Available tadalafil 5 mg tablet TAKE 1 TABLET BY MOUTH DAILY active Not Available Not Available No t Available nitrofura ntoin monohydra te/macroc rystals 100 mg capsule Take 1 capsule every 12 hours by oral route for 5 days. 06/01 completed Not Available Not Available Not Available Fish Oil 03/04 completed Not Available Not Available Not Available fiber 03/04 completed Not Available Not Available Not Available Skin Cream 12/16 completed PT States he can't remember the name 10/23/17 CR Not Available Not Available Not Available tadalafil 2.5 mg tablet TAKE TWO TABLETS BY MOUTH EVERY DAY NEEDED FOR SEXUAL ACTIVITY . DO NOT USE MORE THAN ONE DOSE PER 24 HOURS active Not Available Not Available No t Available Flonase Allergy Relief 50 mcg/actua tion nasal spray,kimberley pension Take 2 sprays every day by nasal route at bedtime. 2014 active Not Available Not Available Not Avai lable Vitals None Recorded Social History Question Answer Notes LastModified by Organizat ion Details LastModified Time Do You Wear A Helmet When Biking? Yes 03/10/23 Information not available 03/10/2023 What Is Your Level Of Caffeine Consumption? Moderate 2/day 3tt Information not available 03/10/2023 How Much Tobacco Do You Chew? None Information not available 04/27/2015 What Type Of Diet Are You Following? REGULAR Average. Red Meat 1x/week03/10 Information not available 03/10/2023 Education Post Graduate [id number] Information not available 06/06/2011 Have There Been Any Changes To Your Family Or Social Situation? Yes Father Passed Had Prostate/mandy ng Cancer 03/10/23 Information not available 03/10/2023 When Did You Quit Smoking? 6-10yearssi [email or web address] hunter Information not available 09/18/2016 How Many Days In The Past Year Have You Had A Heavy Drinking Consumption (4+ Female, 5+ Male)? 0 [email or web address] Information not available 05/28/2013 Are There Any Guns Present In Your Home? No Information not available 04/27/2015 Do You Use Insect Repellent Routinely? Yes 03/10/23 Information not available 03/10/2023 Live Alone Or With Others? With Others /kids Information not available 04/27/2015 Patient Has Health Care Proxy Signed And In Chart Yes Form Given To Pt 11/03/12 [email or web address] Information not available 09/05/2022 Marital Status In formation not available 06/06/2011 Mosquito Repellent Used Routinely Yes Information not available 04/27/2015 What Was The Date Of Your Most Recent Tobacco Screening? 12/29/2023 [email or web address] Information not available 12/29/2023 How Many Children Do You Have? 2 1 Daughter 16y/o, 1 Son 19y/o At [facility][11/05] Information not available 11/03/2012 What Is Your Current Pack Years? 20-29packefe quiroz Information not available 09/18/2016 Do You Use Your Seat Belt Or Car Seat Routinely? Yes 03/10/23 Information not available 03/10/2023 Seat Belts Used Routinely Yes Information not available 04/27/2015 Are You Sexually Active? Yes Information n ot available 06/06/2011 Smoke Alarm In Home Yes Information not available 04/27/2015 Do You Have Smoke And Carbon Monoxide Detectors In Your Home? Yes 03/10/23 Information not available 03/10/2023 Are You Passively Exposed To Smoke? No 03/10/23 Information not available 03/10/2023 General Stress Level Low Information not available 04/27/2015 Do You Use Sunscreen Routinely? Yes 03/10/23 Information not available 03/10/2023 Sex: Unknown Functional Status Question Answer Note LastModified by Organizat ion Details LastModified Time Do you use any illicit or recreational drugs? 03/10/23 Information not available 03/10/2023 What is your level of alcohol consumption? None sober '92. after 1 yrs heavy drinking No alcohol use. checked [phone] Information not available 03/10/2023 Are you currently employed? 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 Moderate 2 times a week03/10/23 Information not available 03/10/2023 Mental Status None recorded. Family History Nothing Reported Notes:MOM: 76y/o: HTN, anxie ty, alcoholism DAD: 79y/o: CABG x 2, 1st dx ~58y/o /ureter cancer-nephrectomy, breast CA SIS: 2: a&w BRO: 1: a&w BARRIE: 1: a&w SON: 1: a&w Medical History No medical history recorded. Past Encounters Encounter ID Performer Location Encounter Start Date Encounter Closed Date Diagnosis/Indication Diagnosis SNOMED-CT Code Diagnosis ICD10 Code Diagnosis Note [id number] HUGH Lora, [facility], OFFICE [address] [place] [address] 06/07/2009 13:54:05 06/07/2009 15:01:12 [id number] HUGH Lora, [facility] [facility] [place], [place]ICE [address] [place] [address] 12/25/2009 11:08:56 12/25/2009 13:18:12 [id number] HUGH Lora, [facility] [place], [address] [place] [address] 1 05/16/2010 15:13:06 05/16/2010 17:23:57 [id number] MD SOPHIA Covarrubias, [facility] [place], [facility] [address] [place] [address] 05/24/2011 10:53:47 05/24/2011 11:55:18 [id number] HUGH Lora, [facility] [place], OFFICE [address] [place] [address] [place] [address] 07/10/2011 14:09:27 07/10/2011 15:03:04 [id number] MD SOPHIA Mac, [facility] [place], [address] [place] [address] 04/22/2012 09:31:55 04/22/2012 10:08:12 [id number] Jordan Recio MD , [facility] [place], [facility] [address] [place] [address] 11/03/2012 09:42:45 11/03/2012 10:23:42 [id number] Jordan Recio MD , [facility] [place], [address] [place] [address] 1 05/28/2013 10:25:47 05/28/2013 11:03:02 [id number] Mellisa CORTES, [facility] [place], [address] [place] [address] 1 04/27/2015 07:55:14 04/27/2015 09:25:08 [id number] MD SOPHIA Mac, [facility] [place], [facility] [address] [place] [address] 1 05/24/2015 11:58:49 05/26/2015 10:40:12 [id number] Walter Augustine MD , [facility], OFFICE [address] [place] [address] 10/14/2015 10:56:10 10/14/2015 13:35:45 [id number] MD SOPHIA Mac, [facility] [place], [address] [place] [address] 09/18/2016 11:17:00 09/18/2016 12:17:00 [id number] Jordan Recio MD , [address] [place] [address] 1 04/30/2017 14:45:22 04/30/2017 15:27:17 [id number] Jordan Recio MD , [address] [place] [address] 1 10/23/2017 13:51:59 10/23/2017 15:23:35 [id number] Paul Lackey MD , [address] [place] [address] 1 11/13/2017 11:59:51 11/13/2017 13:48:47 [id number] Paul Lackey MD , [address] [place] [address] 1 12/16/2018 09:03:24 12/16/2018 10:03:21 [id number] Paul Lackey MD , [address] [place] [address] 1 04/09/2019 10:14:38 04/09/2019 11:25:30 [id number] Paul Lackey MD , [address] [place] [address] 1 03/29/2020 13:30:04 03/30/2020 12:34:18 [id number] Paul Lackey MD , [address] [place] [address] 1 02/28/2021 14:00:02 02/28/2021 14:50:53 [id number] Paul Lackey MD , [address] [place] [address] 1 05/21/2021 15:53:48 05/21/2021 20:25:27 [id number] Paul Lackey MD , [address] [place] [address] 1 06/01/2021 11:58:45 06/01/2021 15:18:08 [id number] MD SOPHIA Earl, [address] [place] [address] 1 03/04/2022 14:02:40 03/04/2022 16:52:28 [id number] Mellisa Nixon D.O. , [facility] [place], OFFICE [address] [place] [address] 1 09/03/2022 11:48:03 09/04/2022 08:04:02 [id number] Paul Lackey MD , [facility] [place], OFFICE [address] [place] [address] 1 03/10/2023 13:59:29 03/10/2023 15:25:59 [id number] Shola Dodson MD Endoscopy , [facility] [place] [address] [place] [address] 06/19/2023 07:25:27 06/19/2023 13:10:05 [id number] Chrissie Doyle er, ELECTROCARDIOGRAPH TECHNICIAN , [facility] [place], OFFICE [address] [place] [address] 12/29/2023 16:35:52 12/30/2023 09:14:11 Health Concerns Section Related Observation LastModified by Organization Detai ls LastModified Time None Recorded Concern Status LastModified by Organization Details LastModified Time None Recorded Advance Directives Directive None Recorded Payers Encounter Date Sequence Insurance Name Policy Number Policy Trejo Covered Member ID Trejo Member ID Guarantor Name 06/01/2021 1 [facility] (HMO) [id number] Danie Landrum [id number] Danie Landrum 03/04/2022 1 [facility] (O) [id number] Danie Landrum [id number] Danie Landrum 09/03/2022 1 [facility] (O) [id number] Danie Landrum [id number] Danie Landrum 03/10/2023 1 [facility] (O) [id number] Danie Landrum [id number] Danie Landrum 12/29/2023 1 [facility] Danie Landrum [id number] Danie Landrum
== END 2024-12-15 14:29 | disposition home or self-care (01) ==
LOC: HO.HUSH 13:29
PROVIDERS: PCP Internal Medicine; Visit Provider Urology
DX: N40.1 Benign prostatic hyperplasia with lower urinary tract symptoms (principal); N13.8 Other obstructive and reflux uropathy; N41.9 Inflammatory disease of prostate, unspecified; N52.9 Male erectile dysfunction, unspecified; R97.20 Elevated prostate specific antigen [PSA]
CPT/HCPCS: 98013

== ENCOUNTER → 2024-12-15 13:29 | Outpatient (BNVA) | payer OTHER, SELFPAY | PROVIDERS: PCP Internal Medicine; Visit Provider Urology ==

== ENCOUNTER 2025-06-14 15:54 | Outpatient (AMB) | payer OTHER, SELFPAY ==
--- OUTSIDE RECORDS SUMMARY | 2023-09-10 08:30 | XMS_ITS | Continuity of Care Document ---
Author Organization [facility] Address [address] [place] [address] Phone Care Team Providers Care Art Sales Consultant Name Role Phone No Information Unavailable Unavailable Allergies, Adverse Reactions, Alerts Substance Reaction Status Criticality No Known allergies Medications Medication Instructions Dosage Effective Dates (start - stop) Status Comments tadalafil 2.5 mg tablet TAKE TWO TABLETS BY MOUTH EVERY DAY NEEDED FOR SEXUAL ACTIVITY. DO NOT USE MORE THAN ONE DOSE PER 24 HOURS - Active atomoxetine 10 mg capsule TAKE ONE CAPSULE BY MOUTH TWICE A DAY - Active doxycycline monohydrate 100 mg capsule take 1 capsule by oral route 2 times every day 100 MG - No Longer Active atomoxetine 25 mg capsule TAKE ONE CAPSULE BY MOUTH EVERY MORNING - No Longer Active amoxicillin 500 mg capsule TAKE 2 CAPSULES TO START THEN 1 CAPSULE BY MOUTH EVERY 8 HOURS UNTIL FINISHED - No Longer Active hydrocodone 7.5 mg-acetaminophen 325 mg tablet TAKE 1 TO 2 TABLETS BY MOUTH EVERY 6 HOURS NEEDED FOR PAIN - No Longer Active Procedures Procedure Date Offic/outpt E&m New Mod Sever Advance Directives Directive Yes / No Effective Date File Name No Information Encounters Encounter Description Practice Location Reason(s) For Visit Diagnoses Date Provider Providers Copied on Encounter [facility], [address], [place], [place], [id number], [place] tel:[phone] [facility] No Information No Information Offic/outpt E&m [facility] Sever [facility], [address], [place], [place], [id number], [place] tel:[phone] [facility] Injury to skin (chief complaint) Puncture wound of left foot, initial encounter Franco SORENSON Karlie. [address], [address], [place], [place], [id number], [place]. tel:[phone] Referring Provider: Karlie SORENSON, [address], [place], [address] . tel:[phone] Family History Family Member Type Diagnosis Age At Onset No Information Payers Payer name Insurance type Covered republican ID Authoriza tion(s) No Information Social History Type Description Quantity Date Captured Comments Sex Male Smoking Status No Information Chief Complaint And Reason For Visit No Information Reason For Referral Reason For Referral No Information History Of Present Illness Encounter Date Complaint History Of Prese nt Illness Injury to skin This is an initi al visit. The injury occurred 1 day ago. Symptoms related to the injury to skin remain unchanged. The patient has a puncture wound on the left foot. The patient had a response to medication(s). The injury is associated with localized swelling. The patient denies any abdominal pain, change in appetite, chills, decreased mobility, diarrhea, fatigue, fever, generalized weakness, headache, joint pain, lymphadenopathy, malaise, nausea, rash, somnolence, vomiting and weight loss. Comments: THORN WENT THROUGH PT'S SHOE AND INTO HIS LEFT FOOT X1 DAY AGO. HE WAS ABLE TO PULL THE THORN OUT HIMSELF. TETANUS UTD Functional Status Date Functional Assessmen t No Information Instructions Date Instruction Additional Infor mation PLEASE TAKE THE PRES CRIBED MEDICATION ADVISED. YOU MAY ALSO BENEFIT FROM SOAKING THE AREA IN WARM WATER WITH EPSOM SALTS. OTHERWISE, KEEP THE AREA CLEAN AND DRY POSSIBLE. IF SYMPTOMS CONTINUE TO PERSIST/WORSEN (INCREASED PAIN, REDNESS, STREAKING, SWELLING, PUS/DRAINAGE), RETURN TO URGENT CARE OR GO TO THE ER. Related to Puncture wound of left foot, initial encounter Assessments Type Assessment Date No Information Patient Care Teams Name Effective Dates (start - stop) Status Members No Information
--- NOTE | 2025-06-14 16:12 | MHC.OFFVIS ---
Intake Visit Reasons: 6m/labs Intake Note: Patient is present for 6M/Labs Urology Medication:TADALAFIL Antibiotic Allergy:NONE Blood Thinner:NONE PVR:0ml Oven Technician Required: No Allergies No Known Allergies Allergy (Verified 06/14/25 16:12) HPI Comments Details: Danie is a pleasant male. He is a patient of Dr. Lackey. He seen for the following urologic conditions - prostatitis - BPH with obstruction - elevated PSA with prior negative biopsy PSA remains elevated but in range for his size prostate NITO today some degree of prostatitis Trial 2 weeks Bactrim 03/13 115 g prostate, small area PI-RADS 2. No definitive areas Doing well on tadalafil 5 mg - refill provided Persistent elevated PSA 03/11 15, 07/11 10, 01/10 13.3, 09/13 12.6, 12/12 16.1 16%, 06/14 15.3 Had been as high as [address] catheter after retention Prior MRI in 2018 and 2019. 2020 read as PI-RADS 2, 12 mm ill-defined lesion Prior evaluation with other urologists at [facility] and [facility]. Had recommended fusion biopsy however no definitive lesions seen on MRI Exosome 04/11 25 (cut point 20) Family history of Addison syndrome - Father and sister Prostatitis Had urinary retention following bilateral laparoscopic hernia repair in April 2021 Prior history of prostatitis Reverse ejaculation with flomax Prior medications include Cialis 5 mg - had mild GI reflux Prior finasteride - libido impact [facility] Medical History Enlarged prostate Surgical History H/O knee surgery S/P hernia repair Family History Father No problems noted. Mother No problems noted. Social History Alcohol intake: never Patient Tobacco Use Status: Never used Tobacco Review of Systems Const Denies chills and Denies fever(s) Card Reports no additional complaints and Denies syncope Resp Denies cough GI Denies abdominal pain and Denies heartburn Reports as per HPI and Denies change in libido Neuro Denies syncope Psych Denies change in libido Endo Denies change in libido Physical Exam Const General: cooperative, healthy appearing, comfortable and no acute distress Orientation/consciousness: patient oriented x3 HEENT Face and sinus: Yes normal facial exam Mouth: moist mucous membranes Neck Neck: Yes normal visual inspection, Yes full ROM and Yes trachea midline Chest Chest palpation & inspection: normal inspection of the chest Resp Effort & Inspection: normal respiratory effort, able to speak in complete sentences and no respiratory distress GI Inspection: Yes normal to inspection Rectal Exam - Male: Yes normal sphincter tone and Yes prostate normal Male General Exam: Yes normal external exam Penis: normal penis and circumcised Meatus: meatus normal Scrotum: scrotum normal Testes: Testes normal Back/Spine/Pelvis Cervical Spine: normal cervical lordosis Thoracic/Lumbar Spine: thoracic and lumbar spine normal to inspection Skin General skin exam: no rashes or lesions noted Neuro General: patient oriented x3, gait normal, tone normal and moves all extremities Extrem General: Yes normal to inspection and Yes capillary refill normal Results AMB Urinalysis, Automated UA Leukoctes 0 Janneth/uL Last Edit by KAREN Mcneal on 06/14/25 16:52 UA Nitrite Negative Last Edit by KAREN Mcneal on 06/14/25 16:52 UA Urobilinogen 0.2 mg/dL Last Edit by KAREN Mcneal on 06/14/25 16:52 UA Protein 15 mg/dL Last Edit by KAREN Mcneal on 06/14/25 16:52 UA pH 6.0 Last Edit by KAREN Mcneal on 06/14/25 16:52 UA Blood 10 Armaan/uL Last Edit by KAREN Mcneal on 06/14/25 16:52 UA Specific [place] 1.030 Last Edit by KAREN Mcneal on 06/14/25 16:52 UA Ketone Negative Last Edit by KAREN Mcneal on 06/14/25 16:52 UA Bilirubin 0 mg/dL Last Edit by KAREN Mcneal on 06/14/25 16:52 UA Glucose 0 mg/dL Last Edit by KAREN Mcneal on 06/14/25 16:52 Assessment & Plan Assessment & Plan (1) Prostatitis: Code(s): N41.9 - Inflammatory disease of prostate, unspecified Category: Medical (2) Enlarged prostate: Code(s): N40.0 - Benign prostatic hyperplasia without lower urinary tract symptoms Category: Medical (3) Elevated PSA: Code(s): R97.20 - Elevated prostate specific antigen [PSA] Category: Medical Plan Six-month follow-up Orders: Orders AMB Urinalysis Automated Today Z13.9 - Encounter for screening, unspecified PSA,Total (Free>4and<10) 6 Months R97.20 - Elevated prostate specific antigen [PSA] Medications: New sulfamethoxazole-trimethoprim 800-160 mg (Bactrim DS) 1 tab PO BID 28 tabs 0RF 14 days N41.9 - Inflammatory disease of prostate, unspecified sulfamethoxazole-trimethoprim 800-160 mg (Bactrim DS) 1 tab PO BID 14 days 28 tabs 0RF N41.9 - Inflammatory disease of prostate, unspecified Patient Instructions: This note is constructed using voice recognition software. While every effort has been made to ensure accuracy customer project manager errors may have been included. Imaging studies, laboratory and physical exam results were discussed and reviewed in detail. No major barriers to patient understanding were identified. An opportunity to ask questions regarding the treatment plan was provided. All questions were answered. The patient expressed understanding and agreement with the above treatment plan. The patient is aware they should contact our office by phone for worsening of their current condition or the appearance of new urologic symptoms. Compliance is encouraged with any medications and followup testing that is ordered. It is a privilege to participate in the urologic care of your patient. If you have any questions or concerns regarding treatment for the above conditions, or other urologic issues, please do not hesitate to contact me. The office telephone contact is [phone]. Sincerely, Dr Prosper Kohler MD, [facility] - Urology Compassionate Specialist Care for the Genitourinary System Coding Level of Care Code Complex visit Add On G2211 Diagnoses Prostatitis N41.9 Enlarged prostate N40.0 Elevated PSA R97.20
--- OUTSIDE RECORDS SUMMARY | 2025-06-14 19:20 | XMS_ITS | Encounter Summary ---
Author Organization [facility] Address [address] [facility] [address] [place] [address] Phone Care Team Providers Care Flaring Machine Operator Name Role Phone Pcp, Unknown Primary Care Provider Unavailabl Mayur Man MD Unavailable Anita Dalton [facility] Unavailable [phone] Jennifer Thompson MD Unavailable [phone] Christie Barker MD Unavailable [phone] Jean Lackey MD Primary Care Provider [phone] Reason for Referral * Physical Therapy (Routine) - Closed Specialty Diagnoses / Procedures Referred By Contosvaldo t Referred To Contact Physical Therapy Diagnoses Encounter for rehabilitation System, Provider Not In, [facility] [id number] [place] [address] Services [address] [place] [address] Phone: tel: fax: Referral ID Status Reason Start Date Expiration Date Visits Re quested Visits Authorized [id number] Closed 06/24/2017 07/20/2018 17 17 Encounter Details Date Type Department Care Team (Latest Contact Info) Description 06/17/2017 Transcribe Orders [address] [address] Nia Pearce [address] [place] [address] [email or web address] Encounter for rehabilitation (Primary Dx) Social History Tobacco Use Types Packs/Day Years Used Date Smoking Tobacco: Never Assessed Sex and Gender Information Value Date Recorded Sex Assigned at Male 02/02/2021 8:45 AM EDT Legal Sex Male 7:23 PM EST Gender Identity Male 02/02/2021 8:45 AM EDT Sexual Orientation Not on file documented as of this encounter Plan of Treatment Scheduled Referrals Name Type Priority Associated Diagnoses Orde r Schedule Ambulatory referral to [facility] Physical Therapy Outpatient Referral Routine Encounter for rehabilitation Ordered: 06/18/2017 documented as of this encounter Visit Diagnoses Diagnosis Encounter for rehabilitation- Primary documented in this encounter Care Teams Flaring Machine Operator Relationship Specialty Start Date End Date Pcp, Unknown PCP - General 01/18/14 07/07/17 Jean Lackey MD [address] [place] [address] [email or web address] PCP - General Internal Medicine 03/11/19 Mayur Flor MD [address] [place] [address] Historical LMR Provider 05/07/17 07/28/21 Anita Dalton FNP [address], [address] [place] [address] Historical LMR Provider 05/07/17 07/28/21 Jennifer Thompson MD [address], [address] [place] [address] Historical LMR Provider 05/07/17 07/28/21 Christie Barker MD [address] [facility] [place] [address] [email or web address] Historical LMR Provider 05/07/17 documented as of this encounter Additional Source Comments The information contained in this document represents components of the legal health record. It is not the complete legal health record.[facility]
--- OUTSIDE RECORDS SUMMARY | 2025-06-14 19:20 | XMS_ITS | Clinical Summary ---
Author Organization [facility] Address [address] [place] [address] Phone Care Team Providers Care Executive Office Manager Name Role Phone Jean Lackey MD Primary Care Provider [phone] Allergies No known active allergies Medications mometasone (ELOCON) 0.1 % cream 1 application to affected area 4 Active docusate sodium (COLACE) 100 MG capsule Take 1 capsule (100 mg total) by mouth 2 (two) times a day. 10 capsule 1 Active oxyCODONE-aceta minophen (PERCOCET) 5-325 mg per tablet Take 1 tablet by mouth every 4 (four) hours as needed for pain (specific location in comments). Partial fill ok 7 tablet 1 Active Family History Medical History Relation Comments CV disease Father 2 Cancer Father 2 Cancer Maternal Grandmother 2 Cancer Paternal Grandfather 2 Cancer Paternal Grandmother 2 Relation Status Comments Father 1 Alive Father 2 Maternal Grandmother 1 Maternal Grandmother 2 Paternal Grandfather 1 Paternal Grandfather 2 Paternal Grandmother 1 Paternal Grandmother 2 Social History Tobacco Use Types Packs/Day Years Used Date Smoking Tobacco: Former Cigarettes Q uit: 04/26/2011 Smokeless Tobacco: Never Alcohol Use Standard Drinks/Week Comments Not Currently 0 (1 standard drink = 0.6 oz pur e alcohol) Education Answer Date Recorded Are you interested in more education? Not on vilma e 11/14/2022 Are you concerned about learning? Not on file 11/14/2022 No 11/14/2022 No 11/14/2022 Digital Access Answer Date Recorded No 12/16/2022 No 12/16/2022 Reliable internet access at home? Not on file 12/16/2022 Device with a working camera? Not on file Sex and Gender Information Value Date Recorded Sex Assigned at Male 02/02/2021 8:45 AM EDT Legal Sex Male 7:23 PM EST Gender Identity Male 02/02/2021 8:45 AM EDT Sexual Orientation Not on file Last Filed Vital Signs Vital Sign Reading Time Taken Comments Blood Pressure 154/86 05/03/2021 2:00 PM EDT Pulse 64 05/03/2021 2:00 PM EDT Temperature 36.4 C (97.5 F) 05/03/2021 1:05 PM EDT Respiratory Rate 10 05/03/2021 2:00 PM EDT Oxygen Saturation 100% 05/03/2021 2:00 PM EDT Inhaled Oxygen Concentration - - Weight 65.8 kg (145 lb) 05/03/2021 7:00 AM EDT Height 188 cm (6' 2.02 ) 05/03/2021 7:00 AM EDT Body Mass Index 18.61 05/03/2021 7:00 AM EDT Plan of Treatment Health Maintenance Due Date Last Done Comments LIPID PANEL 1965 SMOKING Hx and SMOKELESS TOBACCO SCREENING 1978 HEPATITIS C SCREENING 10/27/1983 HIV ONE-TIME SCREENING (18-6 5 YEARS) 10/27/1983 COLOGUARD 2010 FIT TEST 2010 FOBT 2010 SIGMOIDOSCOPY 2010 VIRTUAL COLONOSCOPY 2010 PNEUMOCOCCAL VACCINES (50+ years) (1 of 1 - PCV) 10/27/2015 ZOSTER VACCINES (1 of 2) 10/27/2015 DEPRESSION SCREENING 02/02/2022 02/02/2021 INFLUENZA VACCINE (#1) 2025 COVID-19 VACCINE (3 - 2024-2 6 season) 2025 11/24/2020, 10/25/2020 Adult Td,Tdap Booster 10/24/2027 10/23/2017 , 02/24/2004 COLONOSCOPY 06/19/2033 06/19/2023 COLORECTAL CANCER SCREENING 06/19/2033 RSV VACCINE (1 - 1-dose 75+ series) 2040 HEPATITIS A VACCINES Aged Out No long er eligible based on patient's age to complete this topic HIB VACCINES Aged Out No longer eligi ble based on patient's age to complete this topic MENINGOCOCCAL VACCINES (ACWY) Aged Out No longer eligible based on patient's age to complete this topic MENINGOCOCCAL VACCINES (B) Aged Out N o longer eligible based on patient's age to complete this topic Medical Devices Implanted Type Area Registered Nurse Float Pool Device Identifier Shelf Expiration Date Model / Serial / Lot Graft Mesh 10.5cm 16cm 3dmax Polypropylene Monofilament Patch Laparoscopy Hernia Repair Right - [id number] Implanted:Qty: 1 on 05/03/2021 by Shaquille Taylor MD, MPH at [facility] STANDARD Right: Groin DAVOL 08/17/2025 [id number] / / [id number] Graft Mesh 10.5cm 16cm 3dmax Polypropylene Monofilament Patch Laparoscopy Hernia Repair Left - [id number] Implanted:Qty: 1 on 05/03/2021 by Shaquille Taylor MD, MPH at [facility] Left: Groin DAVOL 10/15/2025 [id number] / / [id number] Procedures Procedure Name Priority Date/Time Associated Diagnosis Comments COLONOSCOPY FOR RESULT ENTRY ONLY Routine 06/19/2023 from Last 3 Months or Most Recently Relevant to Health Maintenance Results * COLONOSCOPY FOR RESULT ENTRY ONLY (06/19/2023) Colonoscopy External us Historical Provider HEALTH MAINTENANCE Final Result from Last 3 Months or Most Recently Relevant to Health Maintenance Insurance [facility] [employer] PPO CARELINK PPO CARELINK PPO CARELINK PPO CARELINK PPO CARELINK PPO CARELINK PPO CARELINK PPO CARELINK PPO Advance Directives For more information, please contact: [phone] (9AM - 5PM [facility], Friday-Friday) * Full Code (Latest Code Status on File) Date Activated Date Inactivated Comments 05/03/2021 8:36 AM Question Answer Comments Code Status Confirmed With: Patient Care Teams Executive Office Manager Relationship Specialty Start Date End Date Jean Lackey MD [address] [place] [address] [email or web address] PCP - General Internal Medicine 03/11/19 Additional Source Comments The information contained in this document represents components of the legal health record. It is not the complete legal health record.[facility]
--- OUTSIDE RECORDS SUMMARY | 2025-06-14 19:21 | XMS_ITS | Clinical Summary ---
[place] [address] Care Team Providers Care Jewel Hole Rough Opener Name Role Phone Jean Lackey MD Primary Care Provider [phone] Allergies No known active allergies Medications pantoprazole EC (Protonix) 40 mg Tablet, Delayed Release (E.C.) TAKE 1 TABLET BY MOUTH EVERY DAY 03/29/2020 Active Active Problems Problem Noted Date Diagnosed Date Elevated PSA 04/23/2019 Social History Tobacco Use Types Packs/Day Years Used Date Smoking Tobacco: Never Assessed Sex and Gender Information Value Date Recorded Sex Assigned at Not on file Legal Sex Male 11:41 AM EDT Gender Identity Not on file Sexual Orientation Not on file Last Filed Vital Signs Vital Sign Reading Time Taken Comments Blood Pressure 122/64 04/30/2019 10:56 AM EDT Pulse 64 04/30/2019 10:56 AM EDT Temperature - - Respiratory Rate - - Oxygen Saturation - - Inhaled Oxygen Concentration - - Weight 68 kg (150 lb) 05/16/2020 2:07 PM EDT Height - - Body Mass Index - - Plan of Treatment Health Maintenance Due Date Last Done Comments CT Colonography 1965 Colonoscopy 1965 Colorectal Cancer Screening 1965 FIT DNA 1965 FIT 1965 Sigmoidoscopy (10 year) with FIT yearly 1965 Sigmoidoscopy 1965 HIV screen 10/27/1983 Hepatitis C Screening 10/27/1983 Lipid Screening 10/27/1983 Hepatitis B vaccine (0-59 yrs) and Risk (1) 1984 Tetanus/Diphtheria/Pertussis Vaccines (1 - Tdap) 04/08 /1985 Pneumoccocal Vaccine: 50+ (1 of 1 - PCV) 10/27/2015 Zoster vaccine (1 of 2) 10/27/2015 Advance Directive 2020 Covid-19 Vaccine (1 - 2024- season) 2025 Influenza (Flu) vaccine (1 o f 1 - Influenza standard series) 03/21/2025 Insurance [facility] Care Teams Jewel Hole Rough Opener Relationship Specialty Start Date End Date Jean Lackey MD [address] [place] [address] [place] [phone] PCP - General General Internal Medicine 04/30/19
--- OUTSIDE RECORDS SUMMARY | 2025-06-14 19:21 | XMS_ITS | Encounter Summary ---
Author Organization [facility] Address [address] [facility] [address] [place] [address] Phone Care Team Providers Care Reordering Clerk Name Role Phone Mayur Flor MD Unavailable Anita Dalton Unavailable [phone] Jennifer Thompson MD Unavailable [phone] Christie Barker MD Unavailable [phone] Jean Lackey MD Primary Care Provider [phone] Encounter Details Date Type Department Care Team (Late st Contact Info) Description 03/29/2019 Procedure Pass [facility] [address] [place] [address] Social History Tobacco Use Types Packs/Day Years Used Date Smoking Tobacco: Never Assessed Sex and Gender Information Value Date Recorded Sex Assigned at Male 02/02/2021 8:45 AM EDT Legal Sex Male 7:23 PM EST Gender Identity Male 02/02/2021 8:45 AM EDT Sexual Orientation Not on file documented as of this encounter Plan of Treatment Not on file documented as of this encounter Visit Diagnoses Not on filedocumented in this encounter Care Teams Reordering Clerk Relationship Specialty Start Date End Date Jean Lackey MD [address] [place] [address] PCP - General Internal Medicine 03/11/19 Mayur Flor MD [address], [address] [place] [address] Historical LMR Provider 05/07/17 07/28/21 karol Anita Monroe, [facility] [address], [address] [place] [address] Historical LMR Provider 05/07/17 07/28/21 Jennifer Thompson MD [address], [address] [place] [address] Historical LMR Provider 05/07/17 07/28/21 Christie Barker MD [address] [place] [address] Historical LMR Provider 05/07/17 documented as of this encounter Additional Source Comments The information contained in this document represents components of the legal health record. It is not the complete legal health record.[facility]
--- OUTSIDE RECORDS SUMMARY | 2025-06-14 19:21 | XMS_ITS | Encounter Summary ---
Author Organization [facility] Address [address] [facility] [address] [place] [address] Phone Care Team Providers Care Social Sciences Lecturer Name Role Phone Mayur Flor MD Unavailable Anita Dalton Unavailable [phone] Jennifer Thompson MD Unavailable [phone] Christie Barker MD Unavailable [phone] Jean Lackey MD Primary Care Provider [phone] Reason for Referral * Physical Therapy (Routine) - Closed Specialty Diagnoses / Procedures Referred By [place] law Referred To Contact Physical Therapy Diagnoses Encounter for rehabilitation System, Provider Not In, [facility] [id number] [place] [address] [address] [place] [address] Phone: tel: Referral ID Status Reason Start Date Expiration Date Visits Re quested Visits Authorized [id number] Closed 12/01/2017 12/01/2018 1 1 Encounter Details Date Type Department Care Team (Latest Contact Info) Description 11/13/2017 Transcribe Orders [facility] [address] [place] [address] Layne [place] [address] Encounter for rehabilitation (Primary Dx) Social History [...] Diagnoses Orde r Schedule Ambulatory referral to [facility] Physical Therapy Outpatient Referral Routine Encounter for rehabilitation Ordered: 12/01/2017 documented as of this encounter Visit Diagnoses Diagnosis Encounter for rehabilitation- Primary documented in this encounter Care Teams Social Sciences Lecturer Relationship Specialty Start Date End Date Jean Lackey MD [address] [place] [id number] PCP - General Internal Medicine 03/11/19 Mayur Flor MD [address] [place] [address] Historical LMR Provider 05/07/17 07/28/21 Anita Dalton FNP [address], [address] [place] [address] Historical LMR Provider 05/07/17 07/28/21 Jennifer Thompson MD [address], [address] [place] [address] Historical LMR Provider 05/07/17 07/28/21 Christie Barker MD [address] [facility], [address] [place] [address] Historical LMR Provider 05/07/17 documented as of this encounter Additional Source Comments The information contained in this document represents components of the legal health record. It is not the complete legal health record.[facility]
--- OUTSIDE RECORDS SUMMARY | 2025-06-14 19:21 | XMS_ITS | Encounter Summary ---
Author Organization [facility] Address [address] [facility] [address] [place] [address] Phone Care Team Providers Care Billing Assistant Name Role Phone Mayur Flor MD Unavailable Anita Dalton Unavailable [phone] Jennifer Thompson MD Unavailable [phone] Christie Barker MD Unavailable [phone] Jean Lackey MD Primary Care Provider [phone] Encounter Details Date Type Department Care Team (Late st Contact Info) Description 05/03/2021 Procedure Pass BWF Periop 1st floor [address] [place] [address] Social History Tobacco Use Types Packs/Day Years Used Date Smoking Tobacco: Former Cigarettes Q uit: 04/26/2011 Smokeless Tobacco: Never Alcohol Use Standard Drinks/Week Comments Not Currently 0 (1 standard drink = 0.6 oz pur e alcohol) Sex and Gender Information Value Date Recorded Sex Assigned at Male 02/02/2021 8:45 AM EDT Legal Sex Male 7:23 PM EST Gender Identity Male 02/02/2021 8:45 AM EDT Sexual Orientation Not on file documented as of this encounter Plan of Treatment Not on file documented as of this encounter Visit Diagnoses Not on filedocumented in this encounter Care Teams Billing Assistant Relationship Specialty Start Date End Date Jean Lackey MD [address] [place] [address] PCP - General Internal Medicine 03/11/19 Mayur Flor MD [address] [place] [address] Historical LMR Provider 05/07/17 07/28/21 Anita Dalton FNP [address], [address] [place] [address] Historical LMR Provider 05/07/17 07/28/21 Jennifer Thompson MD [address] [place] [address] Historical LMR Provider 05/07/17 07/28/21 Christie Barker MD [address] [place] [address] Historical LMR Provider 05/07/17 documented as of this encounter Additional Source Comments The information contained in this document represents components of the legal health record. It is not the complete legal health record.[facility]
== END 2025-06-14 16:51 | disposition home or self-care (01) ==
LOC: HO.HUSH 15:54
PROVIDERS: PCP Internal Medicine; Visit Provider Urology
DX: N41.9 Inflammatory disease of prostate, unspecified (principal); N40.0 Benign prostatic hyperplasia without lower urinary tract symptoms; R97.20 Elevated prostate specific antigen [PSA]; Z13.9 Encounter for screening, unspecified
CPT/HCPCS: 99213

== ENCOUNTER → 2025-06-14 15:54 | Outpatient (BNVA) | payer OTHER, SELFPAY | PROVIDERS: PCP Internal Medicine; Visit Provider Urology | DX: N40.0 Benign prostatic hyperplasia without lower urinary tract symptoms (principal) | CPT/HCPCS: 81003 ==